=== PATIENT | male | born 1980 | race Caucasian/White ===

== ENCOUNTER 2016-09-19 12:13 | Emergency (ER) | payer BC ==
[~2016-09-19] VITALS: Ht 188 cm; Wt 91.3 kg
[2016-09-19 13:09] LABS: HEMATOCRIT 50.6 % (38.0-50.0); MCH 30.8 PG (29.0-34.0); MCHC 34.2 G/DL (30.0-36.0); MEAN PLAT.VOLUME 10.3 uM^3 (9.0-12.4); PLATELET COUNT 211 K/uL (156-360); RBC DIS.WIDTH-CV 12.5 % (11.8-14.6); RBC DIS.WIDTH-SD 41.4 % (39-53); RED BLOOD COUNT 5.62 M/uL (4.00-5.50); WHITE BLOOD COUNT 7.4 K/uL (4.1-10.2)
[2016-09-19 13:19] LABS: CHLORIDE 106 mEq/L (99-109); POTASSIUM 4.1 mEq/L (3.7-5.4); SODIUM 140 mEq/L (136-147)
[2016-09-19 13:21] LABS: GLUCOSE 88 mg/dL (70-99)
[2016-09-19 13:23] LABS: ANION GAP 11 MEQ/L (2-14)
[2016-09-19 13:25] LABS: GFR ESTIMATE (CALCULATED) > 59 mL/min/
[2016-09-19 13:26] LABS: UREA NITROGEN (BUN) 13 mg/dL (9-23)
[2016-09-19 13:32] LABS: TROP-I INTERPRETATION NEGATIVE; TROPONIN-I < 0.01 ng/mL (0.0-0.30)
[2016-09-19 14:41] VITALS: BP 132/83
== END 2016-09-19 14:44 | disposition home or self-care (01) ==
LOC: EME 12:13
DX: R07.89 Other chest pain (principal); F17.200 Nicotine dependence, unspecified, uncomplicated; Z82.49 Family history of ischemic heart disease and other diseases of the circulatory system
CPT/HCPCS: 71020; 80048; 84484; 85027; 93005; 99281; 99284